=== PATIENT | female | born 1975 | race Hispanic/Latino ===

== ENCOUNTER 2017-10-18 12:33 | Emergency (ER) | payer SELFPAY ==
[~2017-10-18 12:33] MED LIST: Iopamidol 370 76% 100 ML VIAL ONE
[2017-10-18 13:51] LABS: Bilirubin Small (Negative); Blood, Urine Negative (Negative); Clarity Clear (Clear); Glucose, Urine (Dipstick) Negative (Negative); Leukocyte Negative (Negative); Nitrite Negative (Negative); Protein, Urine (Dipstick) Negative (Neg-Trace); Specific Gravity, Urine 1.025 (1.005-1.030); pH, Urine 5.5 (5.0-9.0)
[2017-10-18 13:52] LABS: Pregnancy Test - Urine (BHCG) Negative (Negative)
[2017-10-18 13:53] LABS: Pregu Control Background? CLEAR/WHITE (CLR/WHITE); Pregu Control Bar Appear? YES (CONTROL BAR); Specific Gravity 1.025 (1.002-1.036)
[2017-10-18 13:55] LABS: #Lymphocytes 1.4 thou/uL (1.20-3.40); #Monocytes 0.5 thou/uL (0.11-0.59); #Neutrophils 3.6 thou/uL (1.40-6.50); %Basophils 0.8 % (0.0-1.0); %Eosinophils 0.7 % (0.0-10.0); %Lymphocytes 25.1 % (21.0-51.0); %Monocytes 9.1 % (0.0-10.0); %Neutrophils 64.3 % (42.0-75.0); Hemoglobin 14.3 g/dL (12.0-16.0); Mean Corpuscular HGB CONC 32.5 g/dL (32.0-36.0); Mean Corpuscular Hemoglobin 26.9 pg (27.0-31.0); Mean Corpuscular Volume 82.9 fL (78.0-98.0); Mean Platelet Volume 9.1 fL (7.4-10.4); Platelet Count 270 thou/uL (130-400); RBC Distribution Width 12.3 % (11.5-14.5); White Blood Cell (WBC) Count 5.5 thou/uL (4.8-10.8)
[2017-10-18] MEDS ORDERED: Morphine 4 MG/ML Carpuject ONE (13:57)
[2017-10-18] MEDS ORDERED: Ondansetron HCl/PF 4 MG/2 ML Vial ONE (14:00)
[2017-10-18 14:04] LABS: ALT (SGPT) 28 U/L (8-55); AST (SGOT) 21 U/L (5-34); Albumin 3.9 g/dL (3.5-5.0); Alkaline Phosphatase 73 U/L (40-150); Anion Gap 13 mmol/L (10-20); BUN (Urea Nitrogen) 7 mg/dL (7.0-18.7); Bilirubin, Total 0.7 mg/dL (0.2-1.2); Calc. Creatinine Clearance 0 mL/min (70-130); Calcium 9.1 mg/dL (7.8-10.44); Carbon Dioxide 23 mmol/L (22-29); Chloride 103 mmol/L (98-107); Estimated GFR-MDRD 86; Globulin 2.9 g/dL (2.4-3.5); Glucose 113 mg/dL (70-105); Lipase 17 U/L (8-78); Protein, Total 6.8 g/dL (6.0-8.3); Sodium 135 mmol/L (136-145)
--- NOTE | 2017-10-18 15:17 | CT ---
ABDOMEN CT WITH CONTRAST PELVIC CT WITH CONTRAST: HISTORY: Five days of epigastric pain. COMPARISON: None. TECHNIQUE: Abdomen and pelvic CT performed with IV contrast. Enteric contrast was not administered. Coronal re formatted images are submitted for interpretation. FINDINGS: ABDOMEN CT: Lung bases are clear. Heart size is normal. No pericardial effusion. The descending thoracic aorta and abdominal aorta have normal caliber. No periaortic fat stranding. Intra- and extrahepatic portal vein is patent. There is CT evidence of cholelithiasis without obvious evidence of cholecystitis. Hypoattenuation of the liver due to hepatic steatosis. No enhancing masses within the liver. The spleen, pancreas, and adrenal glands are unremarkable. No gastrohepatic, retrocrural, or periportal lymphadenopathy. Symmetric enhancement of the kidneys. Bilaterally, no obstructive uropathy. Limited evaluation of the alimentary canal due to the absence of oral contrast. Gastric mucosa, duod enum, and multiple normal-caliber small bowel loops are noted. Ileocecal junction is normal. Normal -caliber appendix. Scattered fecal material in the nondistended, nondilated colon. Occasional diver ticulum. No diverticulitis. No mesenteric mass, free air, or free fluid. There are mildly enlarged lymph nodes in the right lowe r quadrant which are nonspecific. [employer] enlarged lymph node measures 0.8 x [address]: The uterus is slightly heterogeneous. There are hypodensities in the cervix which may represent nabo thian cysts. Possible fluid in the endometrial canal. Hypodensities in the left and right adnexa may represent cyst/dominant follicles. Nonemergent pelvic ultrasound may be beneficial. A trace amount of free fluid in the pelvis. No free air. No lymphadenopathy. No lytic or blastic lesion in the osseous structures. IMPRESSION: 1. CT evidence of cholelithiasis without evidence of cholecystitis. 2. CT evidence of cyst/follicles in the ovaries. Followup pelvic ultrasound is recommended. 3. Normal-caliber appendix. 4. Nonspecific mildly enlarged lymph nodes in the right lower quadrant. Correlate for mesenteric ly mphadenitis. POS: [facility]
== END 2017-10-18 15:18 | disposition home or self-care (01) ==
LOC: NAV ERS 12:33
DX: R19.7 Diarrhea, unspecified (principal); I10 Essential (primary) hypertension; Z79.899 Other long term (current) drug therapy
CPT/HCPCS: 74177; 80053; 81003; 81025; 83690; 85025; 96374; 96375; J2270; J2405